=== PATIENT | male | born 1970 | race Caucasian/White ===

== ENCOUNTER 2016-06-21 17:33 | Emergency (ER) | payer OTHER ==
[2016-06-21 15:12] LABS: BASOPHILS 0.1 %; BASOPHILS ABSOLUTE 0.01 10/3/uL (0.0-0.16); EOSINOPHILS 0 %; ER CBC TAT 0 Hrs 14 Mins; HEMATOCRIT 38.4 % (40.0-51.0); HEMOGLOBIN 13.4 g/dL (13.6-17.8); IMMATURE GRANULOCYTES 0.3 %; IMMATURE GRANULOCYTES ABSOLUTE 0.04 10/3/uL (0.0-0.11); LYMPHOCYTES 8.9 %; LYMPHOCYTES ABSOLUTE 1.32 10/3/uL (0.67-4.30); MANUAL DIFF NO %; MEAN CORPUS HGB CONC 34.9 g/dL (32.0-36.0); MEAN CORPUSCULAR HEMOGLOB 31.1 pg (26.0-34.0); MEAN CORPUSCULAR VOLUME 89.1 fL (80-100); MEAN PLATELET VOLUME 9.9 fL (9.2-13.0); MONOCYTES ABSOLUTE 0.74 10/3/uL (0.21-1.20); NEUTROPHILS 85.7 %; NEUTROPHILS ABSOLUTE 12.77 10/3/uL (2.02-8.40); PLATELET COUNT 223 10/3/uL (150-400); RBC DISTRIBUTION WIDTH 12.9 % (12.0-16.0); RED CELL COUNT 4.31 10/6/uL (4.7-6.1); WHITE BLOOD CELLS 14.9 10/3/uL (4.5-10.5)
[2016-06-21 15:26] LABS: ALBUMIN 3.5 G/DL (3.5-5.0); ALKALINE PHOSPHATASE 88 U/L (45-117); BUN (BLOOD UREA NITROGEN) 17 MG/DL (6-23); CALCIUM, SERUM 7.9 MG/DL (8.5-10.4); CHLORIDE, SERUM 100 MMOL/L (96-112); CO2 (CARBON DIOXIDE) 27 MMOL/L (24-34); CREATININE 1.11 MG/DL (0.70-1.30); GFR AFRICAN AMERICAN 92 ML/MIN (>=60); GFR NON AFRICAN AMERICAN 80 ML/MIN (>=60); GLOBULIN 3.6 G/DL (2.5-4.1); GLUCOSE, SERUM 153 MG/DL (60-99); POTASSIUM, SERUM 3.9 MMOL/L (3.5-5.3); SGOT(AST) 17 U/L (5-40); SGPT(ALT) 33 U/L (5-65); SODIUM, SERUM 137 MMOL/L (135-148); TOTAL BILIRUBIN 0.6 MG/DL (0-1.2); TOTAL PROTEIN 7.1 G/DL (6.0-8.5)
[2016-06-21 16:41] LABS: BD FL LYMPH (NOT ORD) 1 %; BF BASO (NOT OF) 0 %; BF LARGE MONONUCLEAR 8 %; BODY FLUID EOS (NOT ORD) 0 %; BODY FLUID SEG (NOT ORD) 91 %
[2016-06-21 16:42] LABS: BD FL SOURCE (NOT ORD) SYNOVIAL-LEFT KNEE; BF TOTAL CELL CT (NOT ORD 265280 /MM3; BODY FLUID RBC (NOT ORD) 276000 /MM3
[~2016-06-21 17:33] MED LIST: CELEXA40 MG PO; COZ50 PO; KLONO1 PO; ZOCOR20 PO
[2016-06-21 18:09] LABS: WBC (NOT ORDERED) (RFLEX) 0 (0-5)
[2016-06-21 18:17] LABS: ASCORBIC ACID (UR NOT ORDER) NEG (NEG); BILIRUBIN, URINE NEGATIVE (NEG); ER URINALYSIS TAT 0 Hrs 10 Mins; KETONE, URINE TRACE MG/DL (NEG); LEUKOCYTE ESTERASE(NOT OR NEG (NEG); NITRITE (URINE) NEG (NEG)
== END 2016-06-21 18:46 | disposition home or self-care (01) ==
LOC: ER 17:33
PROVIDERS: Emergency Medicine
DX: M70.42 Prepatellar bursitis, left knee (principal); I10 Essential (primary) hypertension; Y93.9 Activity, unspecified; Z79.899 Other long term (current) drug therapy
CPT/HCPCS: 71010; 80053; 81001; 85025; 87040; 87070; 87077; 87186; 87205; 89051; 96374; 96375; 99284; J1170; J2405; J3370

== ENCOUNTER 2016-06-22 12:28 | Inpatient (IN) | payer OTHER ==
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
--- NOTE | ~2016-06-22 | CN ---
Consultation Report [facility] [address]. [address] NAME: PASTORA DEAN : 70 STATUS : ADM IN [facility]#: [id number] AGE: 45 ADM/REG DATE : 06/22/16 MR#: [id number] REPORT SERV DATE: 06/23/16 DICTATED BY: MAXIMINO ODELL DATE: 06/23/16 REPORT STATUS : Draft TRANSCRIBED BY: MODL DATE: 06/23/16 INFECTIOUS DISEASE CONSULT DATE OF CONSULTATION: REASON FOR REFERRAL: Evaluation and treatment of septic bursitis. HISTORY OF PRESENT ILLNESS: The patient is a 45-year-old male. He has history of hypertension, obstructive sleep apnea, asthma. He was admitted yesterday with about 24 hours of increasing pain and swelling in his right knee that had begun several days before. He does not recall any sort of injury or falls. He has no job that he works on his knees. He was seen in the emergency room two days ago, evaluated by Orthopedic Surgery. The knee was aspirated when it was felt after his evaluation to be a septic bursitis and fluid was obtained and submitted for cultures. The patient was sent out on oral clindamycin but continued to worsen on that and so came back in yesterday and was admitted and is now on vancomycin and clindamycin. The cultures are growing gram-positive cocci this morning and that has been identified as a Strep dysgalactiae. Sensitivity is pending. The patient's temperature has been lower here but continues to have a lot of swelling and redness. He has never had anything like this before and there have been no unusual environmental exposures. PAST MEDICAL HISTORY: Otherwise unremarkable. MEDICATIONS: As mentioned above. He has no known antimicrobial allergies. He is . 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 He is a nonsmoker, has no history of alcohol or substance abuse. FAMILY HISTORY: Noncontributory. PHYSICAL EXAMINATION: GENERAL: Nontoxic, adult male, in no acute distress. He is alert and oriented x3. VITAL SIGNS: His temperature here at present is 98, the T-max last night was 99.3, present pulse 88, respirations 18, blood pressure 124/65, weight 119 kg. HEENT: Sclerae clear. No oral lesions. NECK: Supple. LUNGS: Clear. HEART: Regular rate and rhythm. ABDOMEN: Soft, nontender. Positive bowel sounds. EXTREMITIES: The left knee is swollen, fluctuant over the prepatellar bursa. Erythema and swelling extend down almost to the ankle and up onto the thigh, medially almost to the groin. No other extremity or soft tissue lesions noted. LABS: On Thursday, his white count is 14.9, is 15.5 today with hematocrit 37.4, platelets Consultation Report [address] [place]. [address] NAME: PASTORA DEAN : 70 STATUS : ADM IN [facility]#: [id number] AGE: 45 ADM/REG DATE : 06/22/16 MR#: [id number] REPORT SERV DATE: 06/23/16 DICTATED BY: MAXIMINO ODELL. DATE: 06/23/16 REPORT STATUS : Draft TRANSCRIBED BY: MODL DATE: 06/23/16 238. Unremarkable differential. No white count. BUN and creatinine 13 and 0.85. His culture as stated is growing a group F or group G strep, strep dysgalactiae. Blood cultures taken on the and yesterday remain negative. IMPRESSION: Septic bursitis of the prepatellar bursa of the left knee due to Strep dysgalactiae. RECOMMENDATIONS: 1. We will change to Ancef. 2. He will likely need incision and drainage. Dr. Jack is following him. 3. Follow the patient with you. I appreciate very much your consulting on this patient. ZHANE/ARTURO Maximino Odell M.D. / [id number] CC: Marko Dominguez M.D. Thomas Brown III, M.D.
--- NOTE | ~2016-06-22 | DS ---
Discharge Summary [address] [place]. [address] NAME: PASTORA DEAN : 70 STATUS : DIS IN PAT#: [id number] AGE: 45 ADM/REG DATE : 06/22/16 MR#: [id number] REPORT SERV DATE: 06/26/16 DICTATED BY: ADORE DAMON DATE: 06/25/16 REPORT STATUS : Draft TRANSCRIBED BY: MODL DATE: 06/25/16 ADMISSION DATE: 06/22/2016 DISCHARGE DATE: 06/25/2016 The patient was admitted to the Hospitalist Service. CONSULTANTS: Dr. Mike Jack orthopedics and Dr. Gene Bo, Infectious Disease. DISCHARGE DIAGNOSES: 1. Cellulitis, left lower extremity with septic bursitis prepatellar. 2. Hypertension. 3. Hyperlipidemia. 4. Obesity. PROCEDURES: 1. On 06/23/2016, incision and drainage of septic left prepatellar bursa with prepatellar bursectomy by Dr. Mike Jack. 2. On 06/25/2016, PICC Line insertion, right upper extremity. IMAGING AND DIAGNOSTICS: 1. On 06/21/2016, portable chest x-ray, lungs are clear. No acute process. Pulmonary vessels are normal. Osseous structures intact. 2. On 06/23/2016, venous duplex left lower extremity showed no evidence of DVT. LABORATORY STUDIES: 1. On 06/25/2016, discharge basic metabolic panel revealed a sodium of 140, potassium 3.7, chloride 104, CO2 of 30, BUN 13, creatinine 0.75. Glucose 148 calcium 7.6, magnesium 2.5. 2. On 06/22/2016, hemoglobin A1c 6.4. 3. On 06/25/2016, discharge CBC revealed a white count of 7.5 RBC 3.84, hemoglobin 11.4, hematocrit 34.7, platelets 284,000. 4. Urinalysis on 06/21/2016, showed 30 protein, trace ketones, otherwise negative. 5. On 06/22/2016, lactate level of 1.4. 6. On 06/23/2016, surgical culture from left prepatellar bursa revealed very sparse growth of Streptococcus Dysgalactiae. Gram stain showed moderate WBCs. HISTORY OF PRESENT ILLNESS: For complete history, please refer to admission H and P by Dr. Isrrael Goncalves on 06/22/2016. Briefly, Mr. Dean is a 45-year-old white male who presented with chief complaint of left knee pain and swelling, who was admitted to the Hospitalist Service for further evaluation and treatment. HOSPITAL COURSE: Mr. Dean was admitted to the orthopedic floor under the Hospitalist Service to a non-monitored bed with a diagnosis of cellulitis, left leg. A consult was placed to Dr. Mike Irizarry, orthopedics. He was seen in consultation by Dr. Jack on Discharge Summary [address] [address] NAME: PASTORA DEAN : 70 STATUS : DIS IN PAT#: [id number] AGE: 45 ADM/REG DATE : 06/22/16 MR#: [id number] REPORT SERV DATE: 06/26/16 DICTATED BY: ADORE DAMON DATE: 06/25/16 REPORT STATUS : Draft TRANSCRIBED BY: ARTURO DATE: 06/25/16 06/23/2016. Initially, he was given IV clindamycin and IV vancomycin. He was already n.p.o. After midnight on 06/22/2016 and in preparation for likely surgery. On the morning of the , he was seen by Dr. Gene Bo who discontinued his vancomycin and clindamycin and placed him on Ancef 2 g IV q.8h. He was taken to the operating room later that day for incision and drainage of the septic left prepatellar bursa by Dr. Jack. I initially saw Mr. Dean on 06/24/2016. He was ambulatory in the room and hallway. He denied any chest pain or shortness of breath. His pain was controlled with p.o. narcotics. His vital signs were stable. His laboratory studies were stable; however, he had a leukocytosis with a white count of 13.1, however, this was down from 15.5 the previous day. He did have an A1c come back at 6.4, we did discuss lifestyle modifications with diet and exercise once his left knee heal postoperatively. Dr. Bo ordered a PICC line to be placed on the , however, this did not occur until the . His Ancef was discontinued on the and he was started on penicillin G 24 million units IV daily. These IV antibiotics are to continue through 07/14/2016. On 06/25/2016, Mr. Dean was again ambulatory in the room. Upon my assessment, he denied any new complaints. He denied chest pain or shortness of breath. His vital signs were stable. His laboratory studies were stable. His WBCs came down to 7.5 on this date. His left leg was less edematous and less erythematous and his left knee dressing was clean, dry, and intact. He was being seen by the IV home infusion nurse, who instructed him on his IV infusion pump per the right upper extremity PICC line. He was approved for discharge by Dr. Mike Jack and Dr. Gene Bo, therefore, on this date, he was discharged home in stable condition. DISCHARGE INSTRUCTIONS: 1. Diet: I have recommended an 1800 calorie ADA diabetic diet, low fat, low cholesterol. 2. Activity: As tolerated. DISCHARGE MEDICATIONS: As follows: 1. Celexa 40 mg p.o. daily. 2. Cozaar 50 mg p.o. daily at bedtime. 3. Simvastatin 20 mg p.o. daily at bedtime. 4. Klonopin 1 mg p.o. daily at bedtime. 5. IV antibiotics penicillin G 24 million units IV daily through 07/14/2016. OTHER DISCHARGE INSTRUCTIONS: Include, Mr. Dean is to follow up with his primary care provider, Dr. Andrew Theodore, in 7 to 10 days. He is also instructed to follow up with Dr. Mike Jack on 07/07/2016 as previously scheduled and Dr. Gene Bo in three weeks. FIDE/ARTURO C[place]AND Garcia / [id number] CC: Discharge Summary [address] [address] NAME: PASTORA DEAN : 70 STATUS : DIS IN [facility]#: [id number] AGE: 45 ADM/REG DATE : 06/22/16 MR#: [id number] REPORT SERV DATE: 06/26/16 DICTATED BY: ADORE DAMON DATE: 06/25/16 REPORT STATUS : Draft TRANSCRIBED BY: ARTURO DATE: 06/25/16 Marko Delgado M.D. Mark Anderson, M.D. Thomas Brown III, M.D.
--- NOTE | ~2016-06-22 | CN ---
Consultation Report [facility] [address] [place]. [address] NAME: PASTORA DEAN : 70 STATUS : ADM IN PAT#: [id number] AGE: 45 ADM/REG DATE : 06/22/16 MR#: [id number] REPORT SERV DATE: 06/23/16 DICTATED BY: MIKE JACK III DATE: 06/23/16 REPORT STATUS : Draft TRANSCRIBED BY: MODL DATE: 06/23/16 DATE OF CONSULTATION: 06/23/2016 HYDROGEN POWER PLANT ENGINEER: Mike Jack M.D. CHIEF COMPLAINT: Left knee pain. HISTORY: The patient is a 45-year-old white male, who fell in a parking lot injuring his left knee with a superficial skin abrasion to his left knee, underneath his long pants. This occurred about two weeks ago. He noted some pain, swelling, and redness in his left knee with a history of fever of about 101 and presented to the emergency room on 06/21/2016. He was seen by myself in the emergency room, underwent aspiration of about 4-5 mL to his prepatellar bursa of some purulent material. This was sent for aerobic and anaerobic cultures and a cell count. He was started on vancomycin in the emergency room and 600 mg of . He was sent home on oral antibiotics of Cleocin 300 mg four times a day, but did not get his antibiotics filled. His white count initially was about 9.5 in a Walk-In Clinic, but it elevated up to 15.9 in the emergency room on 06/21/2016. He returned to the emergency room on 06/22/2016 with increase erythema, warmth pain, and fever and is now admitted for IV antibiotics to the hospitalist with consultation to Orthopedics to evaluate his left knee pain. On exam, he has warm, swelling left prepatellar bursa with erythema. This extends down the leg with some swelling of the leg pain. He has pain-free passive range of motion 0-60 degrees to the knee joints, I do not suspect that his infection involves the left knee joint itself. ASSESSMENT: Infected left prepatellar bursa. Cultures obtained from 06/21/2016 and grown out group D strep. An infections disease consult has been obtained and they changed his antibiotics from vancomycin to Ancef. PLAN: I think this needs incision and debridement, irrigation and debridement of his left prepatellar bursa. We will proceed with surgery today on 06/23/2016. TB/MODL Mike Jack III, M.D. / [id number] CC: Marko Dominguez M.D.
--- NOTE | ~2016-06-22 | CN ---
Consultation Report [facility] [address] [place]. [address] NAME: PASTORA DEAN : 70 STATUS : ADM IN PAT#: [id number] AGE: 45 ADM/REG DATE : 06/22/16 MR#: [id number] REPORT SERV DATE: 06/23/16 DICTATED BY: MIKE JACK III DATE: 06/21/16 REPORT STATUS : Draft TRANSCRIBED BY: MODL DATE: 06/21/16 DATE OF CONSULTATION: 06/21/2016 CHILDREN'S TUTOR: Mike Jack M.D. CHIEF COMPLAINT: Left knee pain. HISTORY: The patient is a 42-year-old, white male, who fell a couple of weeks ago injuring his left knee. He has a superficial abrasion to his anterior aspect of his left knee. He has been doing fairly well, but now presents here at [facility] Emergency Room with pain in his right knee. He went to a walk-in clinic earlier in the day and had a CBC down with a white count of 9.5. He has a history of having temperature of 101. Today, he has 99. His white count is 14.9. On exam, he has some tenderness, erythema, and warmth to the prepatellar bursa. He has no effusion to the knee. He has fairly comfortable passive range of motion 0 to 60 degrees, very tender to the prepatellar bursa with some fluctuance, some surrounding erythema, and warmth. ASSESSMENT: Prepatellar bursitis, probable infection. PLAN: I have aspirated the prepatellar bursa and got about 5 or 6 mL of fluid out, is not really cloudy and almost appeared foamy like and somewhat red. I have obtained aerobic and anaerobic cultures, as well as Gram stain. IV antibiotics. He will get gentamicin and IV clindamycin and then go home on some oral clindamycin. Follow up in the office next week. I appreciate this consultation. TB/ARTURO Mike Jack III, M.D. / [id number] CC: Marko Dominguez M.D.
--- NOTE | ~2016-06-22 | OP ---
Record Of Operation [facility] [address] [place]. [address] NAME: PASTORA DEAN : 70 STATUS : ADM IN PAT#: [id number] AGE: 45 ADM/REG DATE : 06/22/16 MR#: [id number] REPORT SERV DATE: 06/23/16 DICTATED BY: MIKE JACK III DATE: 06/23/16 REPORT STATUS : Draft TRANSCRIBED BY: MODL DATE: 06/23/16 DATE OF PROCEDURE: 06/23/2016 PREOPERATIVE DIAGNOSIS: Infected left prepatellar bursa. POSTOPERATIVE DIAGNOSIS: Infected left prepatellar bursa. SURGICAL PROCEDURE PERFORMED: Incision and drainage of septic left prepatellar bursa with prepatellar bursectomy. SURGEON: Mike Jack M.D. ART OBJECTS SUPERVISOR: Ellyn COFFMAN). ANESTHESIA: General. ANTIBIOTICS: Ancef 1 g. COMPLICATIONS: None. TOURNIQUET TIME: 26 minutes. DRAINS: None. CRYSTALLOIDS: 600 mL. ESTIMATED BLOOD LOSS: 20 mL. COMPLICATIONS: None. PROCEDURE IN DETAIL: The patient was brought to the operating room, placed on the table in supine position, and general anesthesia was induced. Ancef 1 g was administered intravenously in the operating room, and pneumatic tourniquet was applied to the left upper thigh. The surgical time-out was called to identify the proper extremity, which was the left knee. The leg was elevated, but not exsanguinated, and tourniquet was inflated to 350 mmHg. Assuring good anesthesia, a midline incision was made over the prepatellar bursa for approximately 3 to 4 cm, purulent material was encountered. A thickened reactive prepatellar bursa was debrided performing a prepatellar bursectomy. The infection tracked down inferiorly, medially, and laterally. Gross pus was identified. Aerobic and anaerobic cultures were obtained as well as Gram stain and fungal cultures. Waterpik was used to irrigate on 3 L of sterile normal saline. The tissues were nice and clean. The infection appeared to track down to the pes anserinus bursa medially and this was undermined with the fingers and instrumentation to remove all pus and infection. The tissues looked nice, healthy, and clean after the debridement. At this point, the subcutaneous tissue was closed with inverted 2-0 Vicryl. The skin was closed with a 4-0 nylon. Sterile Aquacel dressing was applied, and the tourniquet was released after 26 minutes. The patient tolerated the Record Of Operation [address] [address] NAME: PASTORA DEAN : 70 STATUS : ADM IN PAT#: [id number] AGE: 45 ADM/REG DATE : 06/22/16 MR#: [id number] REPORT SERV DATE: 06/23/16 DICTATED BY: MIKE JACK III DATE: 06/23/16 REPORT STATUS : Draft TRANSCRIBED BY: MODChico DATE: 06/23/16 procedure well and brought to recovery room in satisfactory condition. There were no intraoperative, postoperative, or anesthetic complications. All instrument, needle, sponge, and lap counts were correct. TB/JAVIERL Mike Jack III, M.D. / [id number] CC: Marko Dominguez M.D.
[2016-06-22 13:03] LABS: BASOPHILS 0.1 %; BASOPHILS ABSOLUTE 0.01 10/3/uL (0.0-0.16); EOSINOPHILS 0 %; ER CBC TAT 0 Hrs 07 Mins; HEMATOCRIT 39.2 % (40.0-51.0); HEMOGLOBIN 13.2 g/dL (13.6-17.8); IMMATURE GRANULOCYTES 0.2 %; IMMATURE GRANULOCYTES ABSOLUTE 0.03 10/3/uL (0.0-0.11); LYMPHOCYTES 6.9 %; MEAN CORPUS HGB CONC 33.7 g/dL (32.0-36.0); MEAN CORPUSCULAR HEMOGLOB 30.4 pg (26.0-34.0); MEAN CORPUSCULAR VOLUME 90.3 fL (80-100); MEAN PLATELET VOLUME 10.1 fL (9.2-13.0); MONOCYTES 4.6 %; MONOCYTES ABSOLUTE 0.67 10/3/uL (0.21-1.20); NEUTROPHILS 88.2 %; NEUTROPHILS ABSOLUTE 12.77 10/3/uL (2.02-8.40); PLATELET COUNT 225 10/3/uL (150-400); RBC DISTRIBUTION WIDTH 13.1 % (12.0-16.0); RED CELL COUNT 4.34 10/6/uL (4.7-6.1); WHITE BLOOD CELLS 14.5 10/3/uL (4.5-10.5)
[2016-06-22 13:04] LABS: MANUAL DIFF NO %
[2016-06-22 13:14] LABS: BUN (BLOOD UREA NITROGEN) 15 MG/DL (6-23); CHLORIDE, SERUM 104 MMOL/L (96-112); CO2 (CARBON DIOXIDE) 30 MMOL/L (24-34); CREATININE 1.13 MG/DL (0.70-1.30); GFR AFRICAN AMERICAN 90 ML/MIN (>=60); GFR NON AFRICAN AMERICAN 78 ML/MIN (>=60); GLUCOSE, SERUM 164 MG/DL (60-99); POTASSIUM, SERUM 3.9 MMOL/L (3.5-5.3); SODIUM, SERUM 141 MMOL/L (135-148)
[2016-06-22 15:09] LABS: TROPONIN I <0.02 NG/ML (<0.05)
[2016-06-23 05:11] LABS: BASOPHILS 0.1 %; BASOPHILS ABSOLUTE 0.02 10/3/uL (0.0-0.16); EOSINOPHILS 0.5 %; EOSINOPHILS ABSOLUTE 0.07 10/3/uL (0.0-0.53); HEMATOCRIT 37.4 % (40.0-51.0); HEMOGLOBIN 12.3 g/dL (13.6-17.8); IMMATURE GRANULOCYTES 0.3 %; IMMATURE GRANULOCYTES ABSOLUTE 0.05 10/3/uL (0.0-0.11); LYMPHOCYTES 10.5 %; LYMPHOCYTES ABSOLUTE 1.63 10/3/uL (0.67-4.30); MEAN CORPUS HGB CONC 32.9 g/dL (32.0-36.0); MEAN CORPUSCULAR HEMOGLOB 30.5 pg (26.0-34.0); MEAN CORPUSCULAR VOLUME 92.8 fL (80-100); MEAN PLATELET VOLUME 10.4 fL (9.2-13.0); MONOCYTES 6.5 %; MONOCYTES ABSOLUTE 1.01 10/3/uL (0.21-1.20); NEUTROPHILS 82.1 %; NEUTROPHILS ABSOLUTE 12.68 10/3/uL (2.02-8.40); PLATELET COUNT 238 10/3/uL (150-400); RBC DISTRIBUTION WIDTH 13.2 % (12.0-16.0); RED CELL COUNT 4.03 10/6/uL (4.7-6.1); WHITE BLOOD CELLS 15.5 10/3/uL (4.5-10.5)
[2016-06-23 05:12] LABS: MANUAL DIFF NO %
[2016-06-23 05:24] LABS: BUN (BLOOD UREA NITROGEN) 13 MG/DL (6-23); CALCIUM, SERUM 7.8 MG/DL (8.5-10.4); CHLORIDE, SERUM 104 MMOL/L (96-112); CREATININE 0.85 MG/DL (0.70-1.30); GFR AFRICAN AMERICAN 122 ML/MIN (>=60); GFR NON AFRICAN AMERICAN 105 ML/MIN (>=60); POTASSIUM, SERUM 3.7 MMOL/L (3.5-5.3); SODIUM, SERUM 139 MMOL/L (135-148)
[2016-06-23 05:25] LABS: CO2 (CARBON DIOXIDE) 25 MMOL/L (24-34); GLUCOSE, SERUM 129 MG/DL (60-99)
[2016-06-23 09:48] LABS: ALBUMIN 2.9 G/DL (3.5-5.0); ALKALINE PHOSPHATASE 86 U/L (45-117); DIRECT BILIRUBIN 0.2 MG/DL (0.0-0.4); INDIRECT BILIRUBIN(NOT ORDER) 0.4 MG/DL (0.1-0.9); SGOT(AST) 15 U/L (5-40); SGPT(ALT) 28 U/L (5-65); TOTAL BILIRUBIN 0.6 MG/DL (0-1.2); TOTAL PROTEIN 6.8 G/DL (6.0-8.5)
[2016-06-24 08:41] LABS: BUN (BLOOD UREA NITROGEN) 12 MG/DL (6-23); CHLORIDE, SERUM 102 MMOL/L (96-112); CO2 (CARBON DIOXIDE) 28 MMOL/L (24-34); CREATININE 0.81 MG/DL (0.70-1.30); GFR AFRICAN AMERICAN 124 ML/MIN (>=60); GFR NON AFRICAN AMERICAN 107 ML/MIN (>=60); GLUCOSE, SERUM 165 MG/DL (60-99); HEMATOCRIT 37.9 % (40.0-51.0); HEMOGLOBIN 12.5 g/dL (13.6-17.8); MEAN CORPUSCULAR HEMOGLOB 30.2 pg (26.0-34.0); MEAN CORPUSCULAR VOLUME 91.5 fL (80-100); MEAN PLATELET VOLUME 10.7 fL (9.2-13.0); PLATELET COUNT 251 10/3/uL (150-400); POTASSIUM, SERUM 4.2 MMOL/L (3.5-5.3); RBC DISTRIBUTION WIDTH 12.9 % (12.0-16.0); RED CELL COUNT 4.14 10/6/uL (4.7-6.1); SODIUM, SERUM 138 MMOL/L (135-148); WHITE BLOOD CELLS 13.1 10/3/uL (4.5-10.5)
[2016-06-24 08:46] LABS: MANUAL DIFF YES %
[2016-06-24 09:37] LABS: BAND NEUTROPHILS 10 %; LYMPHOCYTES 9 %; LYMPHOCYTES ABSOLUTE (CALC) 1.18 10/3/uL (0.67-4.30); MONOCYTES 6 %; MONOCYTES ABSOLUTE (CALC) 0.79 10/3/uL (0.21-1.20); NEUTROPHILS ABSOLUTE (CALC) 11.14 10/3/uL (2.02-8.40); PLATELET ESTIMATE ADQ (ADEQUATE); RBC MORPHOLOGY NORM (NORMAL); SEGMENTED NEUTROPHIL (0) 75 %; TOTAL NUCLEATED CELLS 100
[2016-06-25 05:07] LABS: BASOPHILS 0.3 %; BASOPHILS ABSOLUTE 0.02 10/3/uL (0.0-0.16); EOSINOPHILS 2.7 %; HEMATOCRIT 34.7 % (40.0-51.0); HEMOGLOBIN 11.4 g/dL (13.6-17.8); IMMATURE GRANULOCYTES 0.5 %; IMMATURE GRANULOCYTES ABSOLUTE 0.04 10/3/uL (0.0-0.11); LYMPHOCYTES ABSOLUTE 2.17 10/3/uL (0.67-4.30); MANUAL DIFF NO %; MEAN CORPUS HGB CONC 32.9 g/dL (32.0-36.0); MEAN CORPUSCULAR HEMOGLOB 29.7 pg (26.0-34.0); MEAN CORPUSCULAR VOLUME 90.4 fL (80-100); MEAN PLATELET VOLUME 10.1 fL (9.2-13.0); MONOCYTES 8.2 %; MONOCYTES ABSOLUTE 0.61 10/3/uL (0.21-1.20); NEUTROPHILS 59.3 %; NEUTROPHILS ABSOLUTE 4.43 10/3/uL (2.02-8.40); PLATELET COUNT 284 10/3/uL (150-400); RBC DISTRIBUTION WIDTH 13.1 % (12.0-16.0); RED CELL COUNT 3.84 10/6/uL (4.7-6.1); WHITE BLOOD CELLS 7.5 10/3/uL (4.5-10.5)
[2016-06-25 05:16] LABS: BUN (BLOOD UREA NITROGEN) 13 MG/DL (6-23); CALCIUM, SERUM 7.6 MG/DL (8.5-10.4); CHLORIDE, SERUM 104 MMOL/L (96-112); CO2 (CARBON DIOXIDE) 30 MMOL/L (24-34); CREATININE 0.75 MG/DL (0.70-1.30); GFR AFRICAN AMERICAN 128 ML/MIN (>=60); GFR NON AFRICAN AMERICAN 111 ML/MIN (>=60); GLUCOSE, SERUM 148 MG/DL (60-99); POTASSIUM, SERUM 3.7 MMOL/L (3.5-5.3); SODIUM, SERUM 140 MMOL/L (135-148)
== END 2016-06-25 16:26 | disposition home health service (06) | DRG 502 ==
LOC: ER 12:28 → 3SO 12:53
PROVIDERS: Hospitalist; Nurse Practitioner; Nurse Practitioner Family; Orthopaedic Surgery
PROC: 0J9P0ZZ Drainage of Left Lower Leg Subcutaneous Tissue and Fascia, Open Approach (ICD-10-PCS; 2016-06-23)
PROC: 02HV33Z Insertion of Infusion Device into Superior Vena Cava, Percutaneous Approach (ICD-10-PCS; principal; 2016-06-25)
PROC: 4A02X4A Measurement of Cardiac Electrical Activity, Guidance, External Approach (ICD-10-PCS; 2016-06-25)
DX: M00.262 Other streptococcal arthritis, left knee (principal); I10 Essential (primary) hypertension; E78.5 Hyperlipidemia, unspecified; E66.9 Obesity, unspecified; Z68.37 Body mass index [BMI] 37.0-37.9, adult
CPT/HCPCS: 36569; 71010; 80048; 80053; 80076; 81001; 83036; 83605; 83735; 84484; 85025; 87015; 87040; 87070; 87075; 87077; 87102; 87116; 87186; 87205; 88304; 89051; 93971; 96365; 96374; 96375; 97110-GP; 97116-GP; 97161-GP; 97165-GO; 99284; 99285; A9270-GY; C1751; J0690; J1170; J2250; J2405; J2540; J3010; J3370